=== PATIENT | male | born 1960 | race Caucasian/White ===

== ENCOUNTER 2016-12-22 15:23 | Emergency (ER) | payer BC ==
[~2016-12-22] VITALS: Ht 185.4 cm; Wt 109.0 kg
[2016-12-22] MEDS ORDERED: ZESTORETIC 20-1 EAC1 PO (16:11)
[2016-12-22] MEDS ORDERED: PULMICORT FLE180 MCG IH (16:11)
[2016-12-22] MEDS ORDERED: EPIPEN ADU0.3 MG/0.3 IM (16:11)
[2016-12-22] MEDS ORDERED: SINGULAIR10 MG PO (16:12)
[2016-12-22] MEDS ORDERED: LEXAPRO20 MG PO (16:12)
[2016-12-22] MEDS ORDERED: METOPROLOL SUC100 MG PO (16:12)
[2016-12-22] MEDS ORDERED: VENTOLIN HFA18 GM IH (16:13)
[2016-12-22] MEDS ORDERED: PERCOCET 5/31 TABLET PO (17:43)
[2016-12-22] MEDS ORDERED: NAPROSYN500 MG PO (17:43)
[2016-12-22 18:43] VITALS: BP 139/82
== END 2016-12-22 18:45 | disposition home or self-care (01) ==
LOC: EME 15:23
DX: S83.92XA Sprain of unspecified site of left knee, initial encounter (principal); X58.XXXA Exposure to other specified factors, initial encounter; I10 Essential (primary) hypertension; J45.909 Unspecified asthma, uncomplicated; F32.9 Major depressive disorder, single episode, unspecified; F17.200 Nicotine dependence, unspecified, uncomplicated
CPT/HCPCS: 73564; 99281; 99283